=== PATIENT | male | born 1995 | race Native Hawaiian/Other Pacific Islander ===

== ENCOUNTER → 2021-02-07 | Outpatient (CLI) | payer OTHER ==
--- NOTE | 2021-02-08 09:14 | XR ---
Cervical spine with flexion and extension HISTORY: Neck and jaw pain 7 views of the cervical spine There is no evident foraminal encroachment. Cervical vertebral bodies show preserved height, alignmen t, and bone mineralization. Prevertebral soft tissues are normal. Minimal retrolisthesis grade 1 C4-5 and extension of approximately 1 mm, anterolisthesis grade 1 C3-4 is minimal on flexion view. Airway is patent. IMPRESSION: No significant degenerative disc disease. Minimal listhesis may be physiologic on flexion and extension views.
== END ==
LOC: RADXRMAIN 15:56
PROVIDERS: ATTEND Family Medicine
DX: M54.2 Cervicalgia (principal); R68.84 Jaw pain
CPT/HCPCS: 72052

== ENCOUNTER → 2021-05-23 | Outpatient (CLI) | payer OTHER ==
--- NOTE | 2021-05-24 08:25 | CT ---
EXAMINATION TYPE: CT soft tissue neck w con DATE OF EXAM: 05/23/2021 COMPARISON: None HISTORY: Jaw and neck pain x1 year. CT DLP: 382.3 mGycm CONTRAST: CT scan of the neck is performed with IV Contrast, patient injected with 100ml mL of Isovue 300. Contrast enhanced CT of the neck was performed from the skull base through the lung apices. AIRWAY: The supraglottic, glottic, and subglottic portions of the airway appear patent and free of mass. SALIVARY GLANDS: The submandibular and parotid glands are free of mass or inflammatory process. THYROID GLAND: No nodules or masses seen. LYMPH NODES: No adenopathy seen greater than 1cm. LUNG APICES: No nodule or mass is seen. OTHER: Vascular structures are patent. No significant degenerative change of the cervical spine. N o abscess seen. Complete opacification right maxillary sinus. IMPRESSION: No discrete abnormality is appreciated at this time.
== END | disposition home or self-care (01) ==
LOC: MERGE 04-25 09:00 → RADCTMAIN 16:40
PROVIDERS: ATTEND Family Medicine
DX: R68.84 Jaw pain (principal); M54.2 Cervicalgia
CPT/HCPCS: 70491; Q9967

== ENCOUNTER → 2021-12-08 | Outpatient (CLI) | payer OTHER | END | disposition home or self-care (01) | LOC: LABWHC1 13:58 | PROVIDERS: ATTEND Family Medicine | DX: Z20.822 Contact with and (suspected) exposure to COVID-19 (principal); J06.9 Acute upper respiratory infection, unspecified | CPT/HCPCS: U0003; C9803 ==

== ENCOUNTER → 2024-05-20 | Outpatient (CLI) | payer BC ==
--- NOTE | 2024-05-20 11:08 | US ---
EXAMINATION TYPE: US pelvic limited DATE OF EXAM: 05/20/2024 COMPARISON: EXAMINATION TYPE: US pelvic limited DATE OF EXAM: 05/20/2024 COMPARISON: NONE CLINICAL INDICATION: Male, 28 years old with history of K40.90 INGUINAL HERNIA R39.198 DIFF URINATING ; difficulty with urination, suspected inguinal hernias TECHNIQUE: Grayscale and color Doppler imaging several images taken at bilateral inguinal regions wi th and without valsalva maneuver FINDINGS: No abnormalities noted at either inguinal region, no mass or organizing fluid collection o r hernia is identified. IMPRESSION: No evidence for inguinal hernia, mass or organizing fluid collection.
== END | disposition home or self-care (01) ==
LOC: RADUSWWP 10:21
PROVIDERS: ATTEND Family Medicine
DX: K40.90 Unilateral inguinal hernia, without obstruction or gangrene, not specified as recurrent (principal)
CPT/HCPCS: 76857